=== PATIENT | female | born 1990 | race Caucasian/White ===

== ENCOUNTER 2018-05-18 16:46 | Outpatient (CLI) | payer OTHER | END 2018-05-18 20:00 | disposition home or self-care (01) | LOC: OBT 16:46 → L-D 16:47 → OBT 20:00 | DX: O36.8130 Decreased fetal movements, third trimester, not applicable or unspecified (principal); Z3A.36 36 weeks gestation of pregnancy | CPT/HCPCS: 76818 ==

== ENCOUNTER 2018-05-21 02:03 | Outpatient (CLI) | payer OTHER ==
[2018-05-21] MEDS: LACTATED RINGER'S 1,000 ML IV* (03:21)
[2018-05-21] MEDS: TERBUTALINE 1 MG/ML INJ SC (03:29)
[2018-05-21 04:26] LABS: ADD UMIC YES; UR AMORPHOUS CRYSTAL FEW /HPF (NONE SEEN); UR ASCORBIC ACID NEGATIVE (NEGATIVE); UR BACTERIA FEW /HPF (NONE SEEN); UR BILIRUBIN (Dip) NEGATIVE (NEGATIVE); UR BLOOD (Dip) NEGATIVE (NEGATIVE); UR CLARITY SLIGHTLY CLOUDY (CLEAR); UR COLOR YELLOW (YELLOW); UR GLUCOSE (Dip) NEGATIVE (NEGATIVE); UR KETONES (Dip) NEGATIVE (NEGATIVE); UR LEUKOCYTE ESTERASE (Dip) 3+ Leu/ul (NEGATIVE); UR NITRITE (Dip) NEGATIVE (NEGATIVE); UR RBC 8 /HPF (0-5); UR SPECIFIC GRAVITY (Dip) 1.005 (1.003-1.030); UR SQUAMOUS EPITHELIAL CELL FEW /HPF (FEW); UR TOTAL PROTEIN (Dip) NEGATIVE (NEGATIVE); UR UROBILINOGEN (Dip) NEGATIVE (NEGATIVE); UR WBC 23 /HPF (0-5)
== END 2018-05-21 05:20 | disposition home or self-care (01) ==
LOC: OBT 02:03 → L-D 02:05 → OBT 05:20
DX: O62.9 Abnormality of forces of labor, unspecified (principal); Z3A.36 36 weeks gestation of pregnancy
CPT/HCPCS: 36415; 81001; 87086; 96360; 96361

== ENCOUNTER 2018-05-25 23:50 | Outpatient (CLI) | payer OTHER ==
[2018-05-26] MEDS: ACETAMINOPHEN 325 MG TAB PO (02:00)
== END 2018-05-26 05:33 | disposition home or self-care (01) ==
LOC: L-D 23:50 → OBT 23:50
DX: O47.1 False labor at or after 37 completed weeks of gestation (principal); Z3A.37 37 weeks gestation of pregnancy
CPT/HCPCS: 76818

== ENCOUNTER 2018-06-12 22:28 | Inpatient (IN) | payer OTHER ==
[2018-06-13] MEDS ORDERED: LIDOCAINE 1% (MPF) 30 ML INJ INJ (02:00)
[2018-06-13] MEDS ORDERED: DINOPROSTONE 10 MG VAG SUPP VAG (02:00)
[2018-06-13] MEDS ORDERED: MISOPROSTOL 200 MCG TAB PR (02:00)
[2018-06-13] MEDS ORDERED: CARBOPROST 250 MCG INJ IM (02:00)
[2018-06-13] MEDS ORDERED: METHYLERGONOVINE 0.2 MG INJ IM (02:00)
[2018-06-13] MEDS ORDERED: OXYTOCIN 30 UNITS/LR 500 ML IV ×2 (02:00)
[2018-06-13] MEDS ORDERED: IBUPROFEN 600 MG TAB PO (02:00)
[2018-06-13] MEDS: AMPICILLIN 2 GM/NS (PMX) 100 ML IV (02:00)
[2018-06-13] MEDS: MISOPROSTOL 25 MCG CAPSULE PO ×2 (03:13→07:08)
[2018-06-13] MEDS: LACTATED RINGER'S 1,000 ML IV* ×3 (03:21→23:11)
[2018-06-13 03:49] LABS: ADD MAN DIFF? NO
[2018-06-13 04:06] LABS: BASOPHILS % 0.3 % (0.0-2.0); EOSINOPHILS # 0.1 10^3/ul (0.0-0.5); EOSINOPHILS % 0.6 % (0.0-7.0); HEMATOCRIT 36.8 % (37.0-47.0); LYMPHOCYTES # 2.8 10^3/ul (0.8-2.9); LYMPHOCYTES % 28.2 % (15.0-51.0); MEAN CORPUSCULAR HEMOGLOBIN 25.2 pg (29.0-33.0); MEAN CORPUSCULAR HGB CONC 32.6 g/dl (32.0-37.0); MEAN CORPUSCULAR VOLUME 77.1 fl (82.0-101.0); MEAN PLATELET VOLUME 11.1 fl (7.4-10.4); MONOCYTE # 0.9 10^3/ul (0.3-0.9); MONOCYTES % 9.4 % (0.0-11.0); NEUTROPHIL # 5.9 10^3/ul (1.6-7.5); PLATELET COUNT 251 10^3/UL (140-415); RED BLOOD COUNT 4.77 10^6/ul (4.20-5.40); RED CELL DISTRIBUTION WIDTH 15.9 % (11.5-14.5)
[2018-06-13 04:06] LABS: WHITE BLOOD COUNT 9.9 10^3/ul (4.8-10.8)
[2018-06-13 04:12] LABS: INR 0.93; PROTIME 12.5 Sec (11.9-14.9)
[2018-06-13 04:13] LABS: PARTIAL THROMBOPLASTIN TIME 27.1 Sec (25.0-35.0)
[2018-06-13] MEDS ORDERED: AMPICILLIN 1 GM/NS (PMX) 50 ML IV (06:00)
[2018-06-13] MEDS: LACTATED RINGER'S 1,000 ML IV (12:19)
[2018-06-13] MEDS ORDERED: NALOXONE (0.4 MG/ML) INJ IV (13:00)
[2018-06-13] MEDS: OXYTOCIN 30 UNITS/LR 500 ML IV (15:48)
[2018-06-13 19:05] LABS: RAPID PLASMA REAGIN NONREACTIVE (NR)
[2018-06-13] MEDS: FENTAnyl 2MCG/ML-ROPIV 0.2% 100 ML BAG EPI (21:02)
[2018-06-14] MEDS: FENTAnyl 2MCG/ML-ROPIV 0.2% 100 ML BAG EPI ×4 (03:42→19:48)
[2018-06-14] MEDS ORDERED: ONDANSETRON 4 MG INJ (03:44)
[2018-06-14] MEDS ORDERED: DIPHENHYDRAMINE 50 MG INJ IM (04:30)
[2018-06-14] MEDS: DIPHENHYDRAMINE 50 MG INJ IV (04:40)
[2018-06-14] MEDS: LACTATED RINGER'S 1,000 ML IV* ×5 (04:40→21:49)
[2018-06-14] MEDS: ONDANSETRON 4 MG INJ IV ×2 (04:57→20:52)
[2018-06-14] MEDS ORDERED: AMPICILLIN 2 GM/NS (PMX) 100 ML (15:40)
[2018-06-14] MEDS: AMPICILLIN 2 GM/NS (PMX) 100 ML IV (19:10)
[2018-06-14] MEDS: AMPICILLIN 1 GM/NS (PMX) 50 ML IV (19:49)
[2018-06-14] MEDS: DEXTROSE 5%-LR 1,000 ML IV (19:52)
[2018-06-14] MEDS ORDERED: IBUPROFEN 600 MG TAB PO (20:00)
[2018-06-14] MEDS: OXYTOCIN 30 UNITS/LR 500 ML IV (20:08)
[2018-06-15] MEDS: AMPICILLIN 1 GM/NS (PMX) 50 ML IV ×2 (00:05→03:50)
[2018-06-15] MEDS: FENTAnyl 2MCG/ML-ROPIV 0.2% 100 ML BAG EPI (00:51)
[2018-06-15] MEDS ORDERED: morphine SULFATE/PF (10 MG/10 ML) INJ (02:50)
[2018-06-15] MEDS ORDERED: DIPHENHYDRAMINE 50 MG INJ IV ×2 (03:00)
[2018-06-15] MEDS ORDERED: ONDANSETRON 4 MG INJ IV ×2 (03:00)
[2018-06-15] MEDS ORDERED: ZOLPIDEM 5 MG TAB PO (03:00)
[2018-06-15] MEDS ORDERED: HYDROmorphONE 0.5 MG/0.5 ML SYG IV (03:00)
[2018-06-15] MEDS ORDERED: HYDROmorphONE 1 MG/5 ML IV SYRINGE IV ×3 (03:00)
[2018-06-15] MEDS ORDERED: FENTAnyl 50 MCG/ML VIAL IV ×2 (03:00)
[2018-06-15] MEDS ORDERED: NALOXONE (0.4 MG/ML) INJ IV (03:00)
[2018-06-15] MEDS: LACTATED RINGER'S 1,000 ML IV (03:23)
[2018-06-15] MEDS ORDERED: METOCLOPRAMIDE 10 MG INJ (04:25)
[2018-06-15] MEDS ORDERED: FAMOTIDINE 20 MG INJ (04:25)
[2018-06-15] MEDS ORDERED: OXYTOCIN 10 UNIT INJ (04:25)
[2018-06-15] MEDS: OXYTOCIN 30 UNITS/LR 500 ML IV ×2 (05:37→06:44)
[2018-06-15] MEDS: KETOROLAC 30 MG INJ IV ×3 (05:37→18:27)
[2018-06-15] MEDS ORDERED: DEXTROSE 5%-LR 1,000 ML IV (05:37)
[2018-06-15] MEDS: CEFAZOLIN 2 GM/50 ML (PMX) 50 ML IVPB (05:39)
[2018-06-15] MEDS: MINERAL OIL LIGHT 10 ML VIAL TOP (05:40)
[2018-06-15] MEDS ORDERED: OXYTOCIN 30 UNITS/LR 500 ML IV (06:00)
[2018-06-15] MEDS ORDERED: CARBOPROST 250 MCG INJ IM (06:00)
[2018-06-15] MEDS ORDERED: LANOLIN 7 GM TUBE TOP (06:00)
[2018-06-15] MEDS ORDERED: MISOPROSTOL 200 MCG TAB PR (06:00)
[2018-06-15] MEDS ORDERED: METHYLERGONOVINE 0.2 MG INJ IM (06:00)
[2018-06-15] MEDS ORDERED: METHYLERGONOVINE 0.2 MG TAB PO (06:00)
[2018-06-15] MEDS: HYDROmorphONE 0.5 MG/0.5 ML SYG IV (06:29)
[2018-06-15] MEDS ORDERED: MISOPROSTOL 200 MCG TAB (07:00)
[2018-06-15] MEDS ORDERED: OXYTOCIN 30 UNITS/LR 500 ML BAG IV (07:00)
[2018-06-15] MEDS ORDERED: METHYLERGONOVINE 0.2 MG INJ (07:00)
[2018-06-15] MEDS: SENNA/DOCUSATE NA (8.6MG/50MG) TAB PO ×2 (09:25→21:00)
[2018-06-15] MEDS: CEFAZOLIN 2 GM/50 ML (PMX) 50 ML IV ×3 (09:37→21:40)
[2018-06-15] MEDS: LACTATED RINGER'S 1,000 ML IV* ×2 (10:32→18:30)
[2018-06-16] MEDS: KETOROLAC 30 MG INJ IV (04:14)
[2018-06-16] MEDS: IBUPROFEN 800 MG TAB PO ×3 (06:00→20:21)
[2018-06-16] MEDS ORDERED: HYDROCODONE/APAP (5/325) TAB PO (08:00)
[2018-06-16] MEDS: HYDROCODONE/APAP (5/325) TAB PO ×2 (08:00→16:00)
[2018-06-16] MEDS: SENNA/DOCUSATE NA (8.6MG/50MG) TAB PO ×2 (09:26→20:21)
[2018-06-16] MEDS: LACTATED RINGER'S 1,000 ML IV* ×2 (10:00→18:00)
[2018-06-16 10:21] LABS: ADD MAN DIFF? NO
[2018-06-16 10:22] LABS: WHITE BLOOD COUNT 12.8 10^3/ul (4.8-10.8)
[2018-06-16 10:22] LABS: BASOPHILS % 0.2 % (0.0-2.0); EOSINOPHILS % 0.2 % (0.0-7.0); HEMATOCRIT 24.9 % (37.0-47.0); HEMOGLOBIN 8.1 g/dl (12.0-16.0); LYMPHOCYTES % 15.8 % (15.0-51.0); MEAN CORPUSCULAR HEMOGLOBIN 25.2 pg (29.0-33.0); MEAN CORPUSCULAR HGB CONC 32.5 g/dl (32.0-37.0); MEAN CORPUSCULAR VOLUME 77.6 fl (82.0-101.0); MEAN PLATELET VOLUME 10.7 fl (7.4-10.4); MONOCYTES % 8.1 % (0.0-11.0); NEUTROPHIL # 9.5 10^3/ul (1.6-7.5); NEUTROPHILS % 74.1 % (39.0-77.0); PLATELET COUNT 190 10^3/UL (140-415); RED BLOOD COUNT 3.21 10^6/ul (4.20-5.40); RED CELL DISTRIBUTION WIDTH 16.2 % (11.5-14.5)
[2018-06-17] MEDS: LACTATED RINGER'S 1,000 ML IV* ×3 (02:00→19:00)
[2018-06-17] MEDS: IBUPROFEN 800 MG TAB PO ×3 (06:00→21:45)
[2018-06-17] MEDS: SENNA/DOCUSATE NA (8.6MG/50MG) TAB PO ×2 (09:05→21:00)
[2018-06-17] MEDS: HYDROCODONE/APAP (5/325) TAB PO ×3 (11:44→16:00)
[2018-06-18] MEDS: LACTATED RINGER'S 1,000 ML IV* ×2 (02:00→10:00)
[2018-06-18] MEDS: IBUPROFEN 800 MG TAB PO ×2 (06:00→06:54)
[2018-06-18] MEDS: HYDROCODONE/APAP (5/325) TAB PO ×2 (08:00)
[2018-06-18] MEDS ORDERED: MEASLES,MUMPS,RUBELLA VACCINE INJ SC* (09:00)
[2018-06-18] MEDS: SENNA/DOCUSATE NA (8.6MG/50MG) TAB PO (09:00)
[2018-06-18] MEDS: DIPHTH/TET/ACEL PERTUSS (ADULT) 0.5 ML VIAL IM* (11:42)
== END 2018-06-18 14:05 | disposition home or self-care (01) | DRG 766 ==
LOC: OBT 22:28 → L-D 06-15 03:59 → PP1 06-15 08:32
PROVIDERS: Obstetrics & Gynecology
PROC: 10D00Z1 Extraction of Products of Conception, Low, Open Approach (ICD-10-PCS; principal; 2018-06-15 04:15)
DX: O62.1 Secondary uterine inertia (principal); O48.0 Post-term pregnancy; Z3A.40 40 weeks gestation of pregnancy; Z37.0 Single live birth; Z23 Encounter for immunization
CPT/HCPCS: 62319; 76815; 76818; 85025; 85610; 85730; 86592; 86850; 86900; 86901; 88307; 90715; 99464

== ENCOUNTER 2018-07-03 04:47 | Emergency (ER) | payer OTHER ==
[2018-07-03 05:28] LABS: ADD MAN DIFF? NO
[2018-07-03] MEDS: ONDANSETRON 4 MG INJ IV (05:41)
[2018-07-03] MEDS: LIDOCAINE/MYLANTA 40 ML BTL PO (05:41)
[2018-07-03] MEDS: SOD CHLORIDE 0.9% 1,000 ML IV (05:43)
[2018-07-03 05:48] LABS: ALANINE AMINOTRANSFERASE 42 IU/L (13-69); ALBUMIN 3.8 g/dl (3.3-4.9); ALBUMIN/GLOBULIN RATIO 1.15; ALKALINE PHOSPHATASE 115 IU/L (42-121); ANION GAP 16 (8-16); ASPARTATE AMINO TRANSFERASE 45 IU/L (15-46); BILIRUBIN,INDIRECT 0.6 mg/dl (0-1.1); BILIRUBIN,TOTAL 0.6 mg/dl (0.2-1.3); BLOOD UREA NITROGEN 15 mg/dl (7-20); CALCIUM 9.5 mg/dl (8.4-10.2); CARBON DIOXIDE 23 mmol/L (21-31); CHLORIDE 106 mmol/L (97-110); CREATININE 0.47 mg/dl (0.44-1.00); GLUCOSE 110 mg/dl (70-220); LIPASE 162 U/L (23-300); POTASSIUM 4.4 mmol/L (3.5-5.1); SODIUM 141 mmol/L (135-144); TOTAL PROTEIN 7.1 g/dl (6.1-8.1)
[2018-07-03 06:21] LABS: WHITE BLOOD COUNT 11.9 10^3/ul (4.8-10.8)
[2018-07-03 06:21] LABS: BASOPHILS % 0.3 % (0.0-2.0); EOSINOPHILS % 0.3 % (0.0-7.0); HEMATOCRIT 36.9 % (37.0-47.0); HEMOGLOBIN 11.5 g/dl (12.0-16.0); LYMPHOCYTES # 3.1 10^3/ul (0.8-2.9); MEAN CORPUSCULAR HEMOGLOBIN 25.2 pg (29.0-33.0); MEAN CORPUSCULAR HGB CONC 31.2 g/dl (32.0-37.0); MEAN CORPUSCULAR VOLUME 80.9 fl (82.0-101.0); MEAN PLATELET VOLUME 9.6 fl (7.4-10.4); MONOCYTE # 0.6 10^3/ul (0.3-0.9); MONOCYTES % 5.2 % (0.0-11.0); NEUTROPHIL # 7.9 10^3/ul (1.6-7.5); NEUTROPHILS % 66.5 % (39.0-77.0); PLATELET COUNT 623 10^3/UL (140-415); RED BLOOD COUNT 4.56 10^6/ul (4.20-5.40); RED CELL DISTRIBUTION WIDTH 17.7 % (11.5-14.5)
[2018-07-03] MEDS: morphine 4 MG/ML VIAL IV (06:30)
[2018-07-03 07:30] LABS: ADD UMIC YES; UR ASCORBIC ACID NEGATIVE (NEGATIVE); UR BILIRUBIN (Dip) NEGATIVE (NEGATIVE); UR BLOOD (Dip) 3+ mg/dL (NEGATIVE); UR CLARITY CLEAR (CLEAR); UR COLOR STRAW (YELLOW); UR GLUCOSE (Dip) NEGATIVE (NEGATIVE); UR KETONES (Dip) NEGATIVE (NEGATIVE); UR LEUKOCYTE ESTERASE (Dip) 2+ Leu/ul (NEGATIVE); UR NITRITE (Dip) NEGATIVE (NEGATIVE); UR NONSQUAMOUS EPITHELIAL CELL 1 /HPF (NONE SEEN); UR RBC 24 /HPF (0-5); UR SPECIFIC GRAVITY (Dip) 1.005 (1.003-1.030); UR SQUAMOUS EPITHELIAL CELL FEW /HPF (FEW); UR TOTAL PROTEIN (Dip) NEGATIVE (NEGATIVE); UR UROBILINOGEN (Dip) NEGATIVE (NEGATIVE); UR WBC 32 /HPF (0-5)
[2018-07-03] MEDS: CEFTRIAXONE 1 GM/50 ML (PMX) 50 ML IVPB (07:57)
== END 2018-07-03 09:07 | disposition home or self-care (01) ==
LOC: E/R 04:47
DX: K59.00 Constipation, unspecified (principal); N30.00 Acute cystitis without hematuria; G89.18 Other acute postprocedural pain
CPT/HCPCS: 36415; 74019; 74176; 80053; 81001; 83690; 85025; 96374; 96375; 99285-25